=== PATIENT | male | born 1960 | race Caucasian/White ===

== ENCOUNTER → 2019-03-27 | Outpatient (CLI) | payer SELFPAY | PROVIDERS: Family Provider Electrodiagnostic Medicine; Visit Provider Physician Assistant | DX: M79.672 Pain in left foot (principal); R60.9 Edema, unspecified ==

== ENCOUNTER 2021-02-18 14:43 | Outpatient (CLI) | payer BC, OTHER, SELFPAY | END 2021-02-18 14:44 | disposition home or self-care (01) | LOC: SPT 14:44 | PROVIDERS: Visit Provider Podiatrist Foot & Ankle Surgery | DX: Z46.89 Encounter for fitting and adjustment of other specified devices (principal); M20.20 Hallux rigidus, unspecified foot; E11.9 Type 2 diabetes mellitus without complications | CPT/HCPCS: 97760; L3030 ==